=== PATIENT | male | born 2000 | race Caucasian/White ===

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

== ENCOUNTER 2022-03-08 07:23 | Emergency (ER) | payer SELFPAY ==
[~2022-03-08] VITALS: Ht 180 cm; Wt 81.0 kg
[~2022-03-08 07:23] MED LIST changes: +ACHD5005 PO
[2022-03-08 07:25] VITALS: BP 144/78
[2022-03-08] MEDS ORDERED: ONDA4TAB11 PO (07:38)
--- NOTE | 2022-03-08 07:38 | ED Fever ---
History of Present Illness General Stated Complaint: FLU-LIKE SYMPTOMS History of Present Illness Date Seen by Provider: Mar 08, 2022 Time Seen by Provider: 07:32 Initial Comments 21-year-old male presents with flulike symptoms. Patient reports generalized body aches, last week he had cough, sore throat, nasal nausea vomiting diarrhea. He reports his dad recently was tested positive for COVID. He has subjective fever, chills and generalized malaise. Reports that the symptoms been worse for the last 3 days. Allergies and Home Medications Allergies Coded Allergies: Penicillins (Verified Allergy, Unknown, 09/06/17) Patient Home Medication List Home Medication List Reviewed: Yes Cephalexin (Keflex) 500 Mg Capsule, 500 MG PO TID Prescribed by: SONIA LYONS on 09/06/17 1157 Hydrocodone Bit/Acetaminophen (Lortab 5 Mg Tablet) 1 Tab Tab, 1 EACH PO Q6H PRN for PAIN Prescribed by: PHILIPP RODRIGUEZ on 10/04/17 1506 Naproxen (Naprosyn) 500 Mg Tablet, 500 MG PO BID PRN for PAIN-MODERATE TO SEVERE Prescribed by: SONIA LYONS on 09/06/17 1157 Review of Systems Review of Systems Constitutional: No chills, No fever EENTM: No throat pain Respiratory: No cough Cardiovascular: No chest pain, No palpitations Gastrointestinal: No abdominal pain; diarrhea, nausea, vomiting Musculoskeletal: other (Arthralgias, myalgias) Skin: no symptoms reported Psychiatric/Neurological: No Symptoms Reported Hematologic/Lymphatic: No Symptoms Reported Past Rbfgbhs-Cahkaf-Spfhox Hx Past Medical History Surgeries: No Respiratory: No Cardiac: No Neurological: No Genitourinary: No Gastrointestinal: No Musculoskeletal: No Endocrine: No HEENT: No Cancer: No Psychosocial: No Integumentary: No Blood Disorders: No Physical Exam Capillary Refill : Height: 5'11.00" Weight: 132lbs. oz. 59.324016vq; 14.06 BMI Method:Stated General Appearance: WD/WN, no apparent distress HEENT: other (Mild posterior pharynx erythema) Neck: full range of motion, supple Respiratory: lungs clear, normal breath sounds Cardiovascular: normal peripheral pulses, regular rate, rhythm Gastrointestinal: non tender, soft Neurologic/Psychiatric: alert, normal mood/affect, oriented x 3 Skin: normal color, warm/dry Progress/Results/Core Measures Suspected Sepsis SIRS Temperature: Pulse: Respiratory Rate: Blood Pressure / Mean: Results/Orders Vital Signs/I&O Capillary Refill : Progress Note : Progress Note Patient with symptoms consistent with either influenza versus COVID. At this time no indication for testing as it will not change treatment. He is 3 days of symptom so outside the window for any treatment. I will provide him a prescription for Zofran. Patient be provided a note work note. Patient stable and discharged Departure Impression Primary Impression: Influenza-like illness Disposition: HOME, SELF-CARE Condition: Stable Departure-Patient Inst. Referrals: TERRY YEH APRN (PCP/Family) Primary Care Physician Patient Instructions: COVID-19 ED, Flu, Viral Syndrome (DC) Add. Discharge Instructions: Drink plenty of fluids, Tylenol or ibuprofen as needed for fever or chills. You may try elderberry. This is available [id number]. Please use as directed on package. Scripts Ondansetron (Ondansetron Odt) 4 Mg Tab.rapdis 4 MG PO Q6H PRN for NAUSEA/VOMITING, #20 TAB 0 Refills Prov: JOSE VÁSQUEZ DO 03/08/22 Work/School Note: Work Release Form Date Seen in the Emergency Department: Mar 08, 2022 Return to Work: Mar 12, 2022 Restrictions: Return-No Fever (24hrs), Return-No Vomiting(24hrs) JOSE VÁSQUEZ DO Mar 08, 2022 07:38
== END 2022-03-08 07:43 | disposition home or self-care (01) ==
LOC: EDUNIT# 07:23 → ER 07:26
DX: R50.9 Fever, unspecified (principal); R53.81 Other malaise; M79.10 Myalgia, unspecified site; R05.9 Cough, unspecified; R11.2 Nausea with vomiting, unspecified; R19.7 Diarrhea, unspecified; Z28.310 Unvaccinated for COVID-19
CPT/HCPCS: 99281